=== PATIENT | male | born 1970 | race Caucasian/White ===

== ENCOUNTER 2017-07-28 10:26 | Emergency (ER) | payer OTHER ==
[~2017-07-28] VITALS: Ht 167.6 cm; Wt 94.3 kg
[2017-07-28 10:32] VITALS: Ht 167.6 cm; Wt 94.3 kg
[2017-07-28 11:07] VITALS: BP 150/95
== END 2017-07-28 11:07 | disposition home or self-care (01) ==
LOC: ED 10:26
DX: R07.89 Other chest pain (principal); F20.9 Schizophrenia, unspecified